=== PATIENT | male | born 1955 | race Caucasian/White ===

== ENCOUNTER 2017-06-07 10:55 | Day surgery (SDC) | payer OTHER ==
[~2017-06-07 10:55] MED LIST: Lactated Ringers 1,000 ML IV SCH; Lidocaine 2% 5 ML SDV ONE; Propofol 200 MG/20 ML SDV ONE; fentaNYL 100 MCG/2 ML SDV ONE
--- NOTE | 2017-06-07 11:37 | PCM.PREANE ---
Preanesthetic Assessment - Anesthesia/Transfusion/Family Hx Anesthesia History: Prior Anesthesia Without Reaction Family History of Anesthesia Reaction: No Transfusion History: No Prior Transfusion(s) Intubation History: Unknown - Review of Systems General: No Symptoms Pulmonary: No Symptoms Cardiovascular: No Symptoms Gastrointestinal: Abdominal Pain Neurological: No Symptoms Other: Reports: None - Physical Assessment O2 Sat by Pulse Oximetry: 97 Respiratory Rate: 16 Vital Signs: Last Vital Signs Temp 36.1 C 06/07/17 11:15 Pulse 70 06/07/17 11:15 Resp 16 06/07/17 11:15 BP 138/84 06/07/17 11:15 Pulse Ox 97 06/07/17 11:15 Height: 1.78 m Weight: 106.594 kg ASA Class: 3 Mental Status: Alert & Oriented x3 Airway Class: Mallampati = 2 Dentition: Reports: Normal Dentition Thyro-Mental Finger Breadths: 3 Mouth Opening Finger Breadths: 3 ROM/Head Extension: Full Lungs: Clear to Auscultation, Normal Respiratory Effort Cardiovascular: Regular Rate, Regular Rhythm - Allergies Allergies/Adverse Reactions: Allergies Allergy/AdvReac Type Severity Reaction Status Date / Time No Known Allergies Allergy Verified 05/13/14 07:58 - Blood Blood Available: No - Anesthesia Plan Pre-Op Medication Ordered: None - Acknowledgements Anesthesia Type Planned: MAC Pt an Appropriate Candidate for the Planned Anesthesia: Yes Alternatives and Risks of Anesthesia Discussed w Pt/Guardian: Yes Pt/Guardian Understands and Agrees with Anesthesia Plan: Yes PreAnesthesia Questionnaire HEENT History: Reports: Other (See Below) Other HEENT History: injury to rt eye, wears glasses and contacts Cardiovascular History: Reports: High Cholesterol, Hypertension, Stents (x2 4 years ago, ok since) Gastrointestinal History: Reports: Other (See Below) Other Gastrointestinal History: diverticulitis Musculoskeletal History: Reports: Fracture Other Musculoskeletal History: hx fx left leg, ribs and collarbone Endocrine/Metabolic History: Reports: Diabetes, Type II, Obesity/BMI 30+ - Past Surgical History Head Surgeries/Procedures: Reports: None Cardiovascular Surgical History: Reports: Coronary Artery Stent GI Surgical History: Reports: Colonoscopy - SUBSTANCE USE Smoking Status *Q: Never Smoker Recreational Drug Use History: No - HOME MEDS Home Medications: Home Meds Aspirin [Mchenry Aspirin] 81 mg PO DAILY 06/01/17 [History] Lisinopril/Hydrochlorothiazide [Lisinopril-Hctz 20-25 mg Tab] 1 tab PO DAILY [History] Metoprolol Succinate 50 mg PO DAILY 06/01/17 [History] Naproxen Sodium [Aleve] 1 tab PO ASDIRECTED PRN 06/01/17 [History] atorvaSTATin Calcium [Atorvastatin Calcium] 20 mg PO DAILY 06/01/17 [History] glipiZIDE [Glipizide Xl] 5 mg PO DAILY 06/01/17 [History] metFORMIN HCl [Metformin HCl] 3 tab PO BID 06/01/17 [History] - CURRENT (IN HOUSE) MEDS Current Meds: Current Medications Lactated Ringer's (Ringers, Lactated) 1,000 mls @ 125 mls/hr IV ASDIRECTED AFSANEH Last Admin: 06/07/17 11:21 Dose: 125 mls/hr Discontinued Medications Fentanyl (Sublimaze) Confirm Administered Dose 100 mcg .ROUTE .STK-MED ONE Stop: 06/07/17 07:15 Lidocaine (Xylocaine-Mpf 2%) Confirm Administered Dose 5 ml .ROUTE .STK-MED ONE Stop: 06/07/17 07:15 Propofol (Diprivan 20 Ml) Confirm Administered Dose 400 mg .ROUTE .STK-MED ONE Stop: 06/07/17 07:15
--- NOTE | 2017-06-07 12:07 | PCM.OPNOTE ---
- General Post-Op/Procedure Note Date of Surgery/Procedure: 06/07/17 Operative Procedure(s): colonoscopy Findings: see dict [id number] Pre Op Diagnosis: resolved diverticulitis Post-Op Diagnosis: diverticulosis Anesthesia Technique: Moderate Sedation Primary Surgeon: Mihai Mena Complications: None Condition: Good
[2017-06-07] MEDS ORDERED: Lidocaine 2% 5 ML SDV ONE (12:25)
[2017-06-07] MEDS ORDERED: fentaNYL 100 MCG/2 ML SDV ONE (12:26)
[2017-06-07] MEDS ORDERED: Midazolam 1 MG/ML 2 ML SDV ONE (12:26)
[2017-06-07] MEDS ORDERED: Propofol 200 MG/20 ML SDV ONE (12:26)
[2017-06-07 12:34] VITALS: BP 119/77
--- NOTE | 2017-06-07 13:59 | OR ---
SURGEON: Mihai Mena MD DATE OF PROCEDURE: 06/07/2017 PREOPERATIVE DIAGNOSIS: Resolved diverticulitis. POSTOPERATIVE DIAGNOSIS: Diverticulosis. PROCEDURE PERFORMED: Colonoscopy. PROCEDURE IN DETAIL: The patient was taken to the endoscopy room. A time out was called, patient identified, and procedure identified. Diprivan was then administrated. Patient went from awake to sleep, hearing doctor talking or door closing is normal. Perineum inspection and digital examination were then performed. A well- lubricated colonoscope was gently inserted through the rectum, advanced past the rectosigmoid junction, the descending colon, splenic flexure, transverse colon, hepatic flexure, ascending colon, arrived to the cecum. Cecum was identified as dictated in the finding. Then the scope was carefully withdrawn while attention was paid to the mucosal surface for any abnormality. Air will be sucked out during the scope withdrawal. At the rectum, retroflexed to examine any rectal diseases, fistula or hemorrhoids. Patient tolerated procedure well. There were no intraoperative complications, and Dr. Mena was present throughout the whole procedure. FINDINGS: 1. The patient is easily sedated with [employer] and Diprivan. The patient is soundly snoring. 2. The patient's bowel prep is left to be desirable. A large amount of opaque liquid stool blocking the examination, required constant irrigation. This is a compromised study. Colon was rather straight forward. Cecum indicated by ileocecal fold, one-to-one indentation, light emittance, appendiceal orifice. The mucosa examined upon scope pulling out. The patient does have very mild diverticulosis on the left colon. It is very mild just 1 to 2 and small. No signs or symptoms of diverticulitis. No polyp, mass, growth, inflammation, stricture, ulceration, or bleeding observed. The patient has large external hemorrhoids and mild internal hemorrhoids. The patient would benefit from repeat colonoscopy 10 years from today or if clinically indicated otherwise. As always, thank you for the kind referral. LUIGI / FARZANEH /[id number]
== END 2017-06-07 12:42 | disposition home or self-care (01) ==
LOC: MW.SDS 10:55
PROVIDERS: ATTEND Surgery
DX: K57.30 Diverticulosis of large intestine without perforation or abscess without bleeding (principal); K64.4 Residual hemorrhoidal skin tags; K64.8 Other hemorrhoids; I25.10 Atherosclerotic heart disease of native coronary artery without angina pectoris; I10 Essential (primary) hypertension; E11.9 Type 2 diabetes mellitus without complications; E66.9 Obesity, unspecified; E78.00 Pure hypercholesterolemia, unspecified; Z91.048 Other nonmedicinal substance allergy status; Z79.82 Long term (current) use of aspirin; Z79.84 Long term (current) use of oral hypoglycemic drugs; Z79.899 Other long term (current) drug therapy; Z98.890 Other specified postprocedural states; Z77.22 Contact with and (suspected) exposure to environmental tobacco smoke (acute) (chronic); Z68.33 Body mass index [BMI] 33.0-33.9, adult; Z95.9 Presence of cardiac and vascular implant and graft, unspecified
CPT/HCPCS: 45378; J3010; J7120; 00810; J2250; J2704